=== PATIENT | female | born 1940 | race Two or more races ===

== ENCOUNTER → 2017-07-03 | Outpatient (CLI) | payer OTHER ==
[2017-07-03 08:37] LABS: CREATININE 0.7 mg/dL (0.6-1.0); GFR 81.4
[2017-07-03 08:37] LABS: BLOOD UREA NITROGEN 12 mg/dL (7-20)
[2017-07-03] MEDS: GADOBUTROL 7.5 MMOL/7.5 ML VIAL IV (09:23)
== END | disposition home or self-care (01) ==
LOC: MRI 07:58
DX: M75.121 Complete rotator cuff tear or rupture of right shoulder, not specified as traumatic (principal); I10 Essential (primary) hypertension
CPT/HCPCS: 36415; 71552; 82565; 84520; A9585